=== PATIENT | female | born 1970 | race Caucasian/White ===

== ENCOUNTER 2017-03-12 19:31 | Emergency (ER) | payer BC ==
[~2017-03-12] VITALS: Ht 160 cm; Wt 80.4 kg
[2017-03-12 19:38] VITALS: BP 126/86; PULSE 101; RESP 16; TEMP 98.3; O2SAT 98
[2017-03-12] MEDS ORDERED: LEXA10TA PO (19:54)
[2017-03-12] MEDS ORDERED: LORA-373 PO (19:55)
--- NOTE | 2017-03-12 20:27 | PD ---
HPI Chief Complaint: Injury Time Seen by Provider: 19:59 Travel History International Travel<30 days: No Contact w/Intl Traveler<30days: No Traveled to known affect area: No History of Present Illness HPI 46-year-old female presents emergency department for evaluation of right wrist pain. Patient reports she was helping move a weight bench when a portion of the foot rest fell back onto her right wrist. Causing immediate pain. She has notable swelling to the dorsal aspect of the wrist. She denies numbness or tingling or weakness in the extremity. She has full range of motion of the wrist. Pain is constant, nonradiating severity 5/10. PFSH Past Medical History Anxiety: Yes Diminished Hearing: No Tetanus Vaccination: Unknown Influenza Vaccination: No ?: Unknown LMP: today : 2 Para: 2 Tubal Ligation: Yes Past Surgical History Section: Yes (x 2) Social History Alcohol Use: No Tobacco Use: No Substance Use: No Allergies-Medications (Allergen,Severity, Reaction): Coded Allergies: No Known Allergies (Verified , 03/12/17) Reported Meds & Prescriptions Reported Meds & Active Scripts Active Reported Lorazepam 0.5 Mg Tab 0.5 Mg PO DAILY PRN Lexapro (Escitalopram Oxalate) 10 Mg Tab 10 Mg PO DAILY Review of Systems Except as stated in HPI: all other systems reviewed are Neg Physical Exam Narrative GENERAL: Well-nourished, well-developed patient. SKIN: Focused skin assessment warm/dry. HEAD: Normocephalic. EYES: No scleral icterus. No injection or drainage. NECK: Supple, trachea midline. No JVD or lymphadenopathy. CARDIOVASCULAR: Regular rate and rhythm without murmurs, gallops, or rubs. RESPIRATORY: Breath sounds equal bilaterally. No accessory muscle use. GASTROINTESTINAL: Abdomen soft, non-tender, nondistended. MUSCULOSKELETAL: No cyanosis. Right upper extremity: Notable swelling, ecchymosis to the dorsal aspect of the wrist. No deformity. 2+ radial and ulnar pulse. Normal sensation. BACK: Nontender without obvious deformity. No CVA tenderness. Data Data Last Documented VS Vital Signs Date Time Temp Pulse Resp B/P (MAP) Pulse Ox O2 Delivery O2 Flow Rate FiO2 03/12/17 20:02 16 98 Room Air 03/12/17 19:49 (99) 03/12/17 19:38 98.3 101 Orders Orders Wrist, Complete ([id number]) (03/12/17 ) [facility] Medical Decision Making Medical Screen Exam Complete: Yes Emergency Medical Condition: Yes Differential Diagnosis Contusion versus wrist fracture versus hematoma Narrative Course 46-year-old female with chief complaint of right wrist pain status post contusion injury by a piece of a weight bench. Patient has notable swelling and ecchymosis to the dorsal aspect of the wrist. There is no deformity. 2+ distal pulses. X-ray pending X-ray of the right wrist negative for fracture. Patient be treated for contusion. Instructed to ice and elevate the extremity. Take [id number] NSAIDs as needed for pain. Follow-up the primary doctor. Diagnosis Primary Impression: Contusion Qualified Codes: S60.211A - Contusion of right wrist, initial encounter Referrals: Primary Care Physician Additional Instructions: Elevate and ice the extremity. Take [id number] Motrin 600-800 mg every 6-8 hours as needed for pain. Follow-up the primary doctor. Disposition: 01 DISCHARGE HOME Condition: Stable Nicole Loza Mar 12, 2017 20:27
--- NOTE | 2017-03-12 20:40 | RADRPT ---
EXAM DATE/TIME: 03/12/2017 20:23 [place] COMPARISON: No previous studies available for comparison. INDICATIONS : Weight bench fell on patients wrist. Complains of pain. MEDICAL HISTORY : None. SURGICAL HISTORY : None. ENCOUNTER: Initial ACUITY: 1 day PAIN SCORE: 10/10 LOCATION: Right wrist FINDINGS: Three views of the right wrist demonstrate no fracture or dislocation. Mineralization is within robbie l limits. There is no significant arthropathy. No soft tissue abnormality or radiopaque foreign body is identified. CONCLUSION: No acute abnormality is identified. Slava Mckay MD on March 12, 2017 at 20:36 Board Certified Radiologist. This report was verified electronically.
== END 2017-03-12 21:03 | disposition home or self-care (01) ==
LOC: PHEFT 19:31
DX: S60.211A Contusion of right wrist, initial encounter (principal); W20.8XXA Other cause of strike by thrown, projected or falling object, initial encounter
CPT/HCPCS: 73110; 99283

== ENCOUNTER 2017-12-21 07:46 | Emergency (ER) | payer BC ==
[~2017-12-21] VITALS: Ht 160 cm; Wt 75.0 kg
[~2017-12-21 07:46] MED LIST: LEXA10TA PO; LORA0.5T PO; MEDR4PAK PO; TRAZ50TA12 PO
[2017-12-21 07:48] VITALS: BP 117/77; PULSE 91; RESP 16; TEMP 97.9; O2SAT 99
[2017-12-21] MEDS ORDERED: ONDANSETRON ODT 4 MG TAB PO ONE (08:30)
[2017-12-21] MEDS ORDERED: MORPHINE SULFATE 4 MG/ML INJ IM ONE (08:30)
[2017-12-21] MEDS ORDERED: TYLETAB34 PO (09:16)
--- NOTE | 2017-12-21 09:19 | PD ---
HPI Chief Complaint: Back/ Neck Pain or Injury Time Seen by Provider: 08:02 Travel History International Travel<30 days: No Contact w/Intl Traveler<30days: No Traveled to known affect area: No History of Present Illness HPI The patient was seen and examined in the presence of the nurse. This patient complains of back pain. Duration is 30 minutes. Severity is moderate to severe. She bent over to put her underwear on and during the active bending over developed a low back pain. There was some radiation down the back of her leg. No motor weakness or sensory loss. PFSH Past Medical History Hx Anticoagulant Therapy: No Anxiety: Yes Diabetes: No Diminished Hearing: No Tetanus Vaccination: Unknown Influenza Vaccination: No ?: Not LMP: 3 WEEKS AGO : 2 Para: 2 Tubal Ligation: Yes Past Surgical History Section: Yes (x 2) Social History Alcohol Use: Yes (OCCASIONAL) Tobacco Use: No Substance Use: No Allergies-Medications (Allergen,Severity, Reaction): Coded Allergies: No Known Allergies (Verified Adverse Reaction, Unknown, 12/21/17) Reported Meds & Prescriptions Reported Meds & Active Scripts Active Tylenol-Codeine #3 (Acetaminophen-Codeine) 300-30 mg Tab 1 Tab PO Q6H PRN Reported Lorazepam 0.5 Mg Tab 0.5 Mg PO DAILY PRN Lexapro (Escitalopram Oxalate) 10 Mg Tab 10 Mg PO DAILY Review of Systems General / Constitutional: No: Fever HENT: No: Headaches Cardiovascular: No: Chest Pain or Discomfort Respiratory: No: Cough Gastrointestinal: No: Nausea Physical Exam Narrative GASTROINTESTINAL: Abdomen soft, non-tender, nondistended. Positive bowel sounds. No hepato-splenomegaly, or palpable masses. No guarding. NEUROLOGICAL: Awake and alert. Pupils are equal round and reactive. Motor and sensory grossly within normal limits. Five out of 5 muscle strength in all muscle groups. Normal speech. SKIN: Focused skin assessment reveals no rash or ulcers. Skin is warm and dry. Palpation shows no induration or nodules. Back: No midline or CVA tenderness. No bruising or swelling Data Data Last Documented VS Vital Signs Date Time Temp Pulse Resp B/P (MAP) Pulse Ox O2 Delivery O2 Flow Rate FiO2 12/21/17 07:48 97.9 91 16 117/77 (90) 99 Orders Orders Morphine Inj (Morphine Inj) (12/21/17 08:30) Ondansetron Odt (Zofran Odt) (12/21/17 08:30) [facility] Medical Decision Making Medical Screen Exam Complete: Yes Emergency Medical Condition: Yes Medical Record Reviewed: Yes Differential Diagnosis Sciatica, disc herniation, lumbar strain Narrative Course I have reviewed the patient's electronic medical record. No objective findings on exam. She is neurologically normal. I do not see indication for emergent imaging I gave her morphine injection and Zofran dose for symptom relief. I am writing her a dozen Tylenol 3. She has primary physician she should contact for follow-up Diagnosis Primary Impression: Low back pain Qualified Codes: M54.5 - Low back pain Additional Instructions: The patient was advised to follow up with their physician and return if they worsen. The patient was warned about potential sedation for the medications they will receive on prescription. Med/Other Pt SpecificInfo: Prescription(s) given Scripts Acetaminophen-Codeine (Tylenol-Codeine #3) 300-30 mg Tab 1 TAB PO Q6H Y for PAIN, #12 TAB 0 Refills Prov: Lopez Armendariz MD 12/21/17 Disposition: 01 DISCHARGE HOME Condition: Stable Lopez Armendariz MD Dec 21, 2017 09:19
== END 2017-12-21 09:20 | disposition home or self-care (01) ==
LOC: PHED 07:46
DX: M54.5 Low back pain (principal); F41.9 Anxiety disorder, unspecified
CPT/HCPCS: 96372; 99283; J2270